=== PATIENT | female | born 1935 | race Caucasian/White ===

== ENCOUNTER 2016-07-22 17:03 | Emergency (ER) | payer MEDICARE, OTHER ==
[~2016-07-22] VITALS: Ht 157.5 cm; Wt 52.0 kg
[~2016-07-22 17:03] MED LIST: ADVAI100I PO; ALPR-138 PO; ASPI1TAB7 PO; DUONI NEB; FLUT1INH INH; NAME5TAB2 PO; SIMV5TAB3 PO
[2016-07-22 17:10] VITALS: BP 128/59; PULSE 87; RESP 16; TEMP 98.5; O2SAT 95
--- NOTE | 2016-07-22 17:27 | PD ---
HPI Chief Complaint: Abnormal Results Time Seen by Provider: 17:25 Travel History International Travel<30 days: No Contact w/Intl Traveler<30days: No Traveled to known affect area: No History of Present Illness HPI 80-year-old female with history of COPD, presents to the ER sent in by her primary care physician, apparently has had 2-3 weeks history of coughing, shortness of breath, and had been sent in for a chest x-ray several days ago showing a questionable pulmonary mass. She was supposed to follow-up for further radiological study but was not able to get to the facility, was told by primary care physician to come to the hospital for further evaluation. She denies any fevers, vomiting, or any other symptoms. Modifying Factors: None Associated Signs & Symptoms: Several weeks of coughing, questionable pulmonary mass Risk Factors: COPD PFSH Past Medical History Hx Anticoagulant Therapy: Yes (asa 81mg) Anxiety: Yes Depression: Yes High Cholesterol: Yes COPD: Yes Dementia: Yes (MILD) Diminished Hearing: No Respiratory: Yes (copd) PNEUMOCCOCAL Vaccine (Year): 2009 ?: Not Past Surgical History Cholecystectomy: Yes Eye Surgery: Yes (cataracts) Hysterectomy: Yes Tonsillectomy: Yes Other Surgery: Yes (BREAST TUMOR REMOVED-BENIGN) Social History Alcohol Use: Yes (occ) Tobacco Use: Yes (1 PPD) Substance Use: No Allergies-Medications (Allergen,Severity, Reaction): Coded Allergies: No Known Allergies (Verified , 07/22/16) Reported Meds & Prescriptions Reported Meds & Active Scripts Active Active Prescriptions or Reported Medications Unobtainable Review of Systems Except as stated in HPI: all other systems reviewed are Neg Physical Exam Narrative GENERAL: Well-developed elderly white female patient in mild distress, coughing in the ER. Awake and oriented 3. SKIN: Focused skin assessment warm/dry. HEAD: Atraumatic. Normocephalic. EYES: Pupils equal and round. No scleral icterus. No injection or drainage. ENT: No nasal bleeding or discharge. Mucous membranes pink and moist. NECK: Trachea midline. No JVD. CARDIOVASCULAR: Regular rate and rhythm. No murmur appreciated. RESPIRATORY: No accessory muscle use. Decreased throughout. Breath sounds equal bilaterally. GASTROINTESTINAL: Abdomen soft, non-tender, nondistended. Hepatic and splenic margins not palpable. MUSCULOSKELETAL: No obvious deformities. No clubbing. No cyanosis. No edema. NEUROLOGICAL: Awake and alert. No obvious cranial nerve deficits. Motor grossly within normal limits. Normal speech. PSYCHIATRIC: Appropriate mood and affect; insight and judgment normal. Data Data Last Documented VS Vital Signs Date Time Temp Pulse Resp B/P Pulse Ox O2 Delivery O2 Flow Rate FiO2 07/22/16 17:45 94 Room Air 07/22/16 17:35 21 07/22/16 17:25 20 07/22/16 17:10 98.5 87 128/59 Orders Complete Blood Count With Diff (07/22/16 17:25) Basic Metabolic Panel (Bmp) (07/22/16 17:25) Iv Access Insert/Monitor (07/22/16 17:25) Ecg Monitoring (07/22/16 17:25) Oximetry (07/22/16 17:25) Oxygen Administration (07/22/16 17:25) Chest, Single Ap (07/22/16 17:25) Sodium Chloride 0.9% Flush (Ns Flush) (07/22/16 17:30) Albuterol-Ipratropium Neb (Duoneb Neb) (07/22/16 17:30) D-Dimer (07/22/16 18:08) Methylprednisolone So Succ Inj (Solumedr (07/22/16 18:45) Albuterol-Ipratropium Neb (Duoneb Neb) (07/22/16 18:45) Labs Laboratory Tests Test 07/22/16 17:45 White Blood Count 7.6 TH/MM3 Red Blood Count 4.49 MIL/MM3 Hemoglobin 13.4 GM/DL Hematocrit 39.4 % Mean Corpuscular Volume 87.7 FL Mean Corpuscular Hemoglobin 30.0 PG Mean Corpuscular Hemoglobin 34.2 % Concent Red Cell Distribution Width 12.7 % Platelet Count 216 TH/MM3 Mean Platelet Volume 6.7 FL Neutrophils (%) (Auto) 58.3 % Lymphocytes (%) (Auto) 20.7 % Monocytes (%) (Auto) 7.6 % Eosinophils (%) (Auto) 12.4 % Basophils (%) (Auto) 1.0 % Neutrophils # (Auto) 4.4 TH/MM3 Lymphocytes # (Auto) 1.6 TH/MM3 Monocytes # (Auto) 0.6 TH/MM3 Eosinophils # (Auto) 0.9 TH/MM3 Basophils # (Auto) 0.1 TH/MM3 CBC Comment DIFF FINAL Differential Comment Sodium Level 139 MEQ/L Potassium Level 4.0 MEQ/L Chloride Level 103 MEQ/L Carbon Dioxide Level 29.8 MEQ/L Anion Gap 6 MEQ/L Blood Urea Nitrogen 25 MG/DL Creatinine 0.86 MG/DL Estimat Glomerular Filtration 63 ML/MIN Rate Random Glucose 103 MG/DL Calcium Level 8.8 MG/DL MDM Medical Decision Making Medical Screen Exam Complete: Yes Emergency Medical Condition: Yes Medical Record Reviewed: Yes Interpretation(s) Laboratory Tests Test 07/22/16 17:45 Mean Platelet Volume 6.7 FL (7.0-11.0) Eosinophils (%) (Auto) 12.4 % (0.0-4.0) Eosinophils # (Auto) 0.9 TH/MM3 (0-0.4) Blood Urea Nitrogen 25 MG/DL (7-18) Estimat Glomerular Filtration 63 ML/MIN (>89) Rate Last 24 hours Impressions Chest X-Ray 07/22/16 1725 Signed Impressions: Service Date/Time: Friday, July 22, 2016 17:30 - CONCLUSION: Chronic stable interstitial changes. No acute cardiopulmonary disease. Lloyd Alcaraz Jr., MD Differential Diagnosis Coughing, shortness of breathCOPD exacerbation versus pneumonia versus pulmonary mass Narrative Course Chest x-ray did not reveal any signs of pulmonary masses. Patient was given Solu-Medrol and nebulizers with improvement in coughing and shortness of breath in the ER. Physician Communication Physician Communication Case is signed out to Dr. Peterson at 7 PM pending dimer. Disposition based on dimer. Diagnosis Primary Impression: COPD exacerbation Scripts Unable to Obtain Active Prescriptions or Reported Meds Condition: Stable Tammie Tovar MD Jul 22, 2016 17:27
[2016-07-22] MEDS ORDERED: RESP: ALBUTEROL 2.5 MG/IPRATROPIUM 0.5 MG NEB (SCH) INH ONE ×2 (17:30→18:45)
[2016-07-22] MEDS ORDERED: SODIUM CHLORIDE 0.9% FLUSH 10 ML FLUSH IVF PRN (17:30)
[2016-07-22 17:35] VITALS: O2SAT 97
--- NOTE | 2016-07-22 17:39 | RADHPO ---
EXAM DATE/TIME: 07/22/2016 17:30 [facility] COMPARISON: CHEST SINGLE AP, November 04, 2014, 14:03. INDICATIONS : Shortness of breath. MEDICAL HISTORY : Chronic obstructive pulmonary disease. SURGICAL HISTORY : None. ENCOUNTER: Initial ACUITY: 1 day PAIN SCORE: 0/10 LOCATION: Bilateral chest FINDINGS: A single view of the chest demonstrates the lungs to be symmetrically aerated without evidence of mas s, infiltrate or effusion. Chronic interstitial changes are stable. The cardiomediastinal contours a re unremarkable. Osseous structures are intact. CONCLUSION: Chronic stable interstitial changes. No acute cardiopulmonary disease. Lloyd Alcaraz Jr., MD on July 22, 2016 at 17:35 Board Certified Radiologist. This report was verified electronically.
[2016-07-22 17:45] VITALS: O2SAT 94
[2016-07-22 18:05] LABS: AUTOMATED NEUTROPHIL # 4.4 TH/MM3 (1.8-7.7); BASOPHIL # 0.1 TH/MM3 (0-0.2); EOSINOPHIL # 0.9 TH/MM3 (0-0.4); EOSINOPHIL % 12.4 % (0.0-4.0); HEMATOCRIT 39.4 % (35.0-46.0); HEMO FLAGS DIFF FINAL; LYMPH % 20.7 % (9.0-44.0); LYMPHOCYTE # 1.6 TH/MM3 (1.0-4.8); MEAN CELL VOLUME 87.7 FL (80.0-100.0); MEAN CORPUSCULAR HGB CONC 34.2 % (32.0-36.0); MONO % 7.6 % (0.0-8.0); NEUT % 58.3 % (16.0-70.0); PLATELET COUNT 216 TH/MM3 (150-450); RED BLOOD COUNT 4.49 MIL/MM3 (4.00-5.30); RED CELL DISTRIBUTION WIDTH 12.7 % (11.6-17.2); WHITE BLOOD COUNT 7.6 TH/MM3 (4.0-11.0)
[2016-07-22 18:18] LABS: BICARBONATE 29.8 MEQ/L (21.0-32.0)
[2016-07-22] MEDS ORDERED: methylPREDNISolone SOD SUCC 125 MG/2 ML VIAL IV PUSH ONE (18:45)
[2016-07-22 19:18] VITALS: BP 120/58; PULSE 74; RESP 20; O2SAT 92
--- NOTE | 2016-07-22 19:25 | PD ---
Physical Exam Date Seen by Provider: Jul 22, 2016 Time Seen by Provider: 19:24 Narrative accepted in transfer of care from Dr Tovar GENERAL: Thin elderly female in no acute distress no respiratory distress SKIN: Warm and dry. HEAD: Normocephalic. EYES: No scleral icterus. No injection or drainage. NECK: Supple, trachea midline. No JVD or lymphadenopathy. CARDIOVASCULAR: Regular rate and rhythm without murmurs, gallops, or rubs. RESPIRATORY: Breath sounds equal bilaterally. No accessory muscle use. GASTROINTESTINAL: Abdomen soft, non-tender, nondistended. MUSCULOSKELETAL: No cyanosis, or edema. BACK: Nontender without obvious deformity. No CVA tenderness. Data Data Last Documented VS Vital Signs Date Time Temp Pulse Resp B/P Pulse Ox O2 Delivery O2 Flow Rate FiO2 07/22/16 20:58 88 20 153/64 95 07/22/16 17:45 Room Air 07/22/16 17:35 21 07/22/16 17:10 98.5 Orders Complete Blood Count With Diff (07/22/16 17:25) Basic Metabolic Panel (Bmp) (07/22/16 17:25) Iv Access Insert/Monitor (07/22/16 17:25) Ecg Monitoring (07/22/16 17:25) Oximetry (07/22/16 17:25) Oxygen Administration (07/22/16 17:25) Chest, Single Ap (07/22/16 17:25) Sodium Chloride 0.9% Flush (Ns Flush) (07/22/16 17:30) Albuterol-Ipratropium Neb (Duoneb Neb) (07/22/16 17:30) D-Dimer (07/22/16 18:08) Methylprednisolone So Succ Inj (Solumedr (07/22/16 18:45) Albuterol-Ipratropium Neb (Duoneb Neb) (07/22/16 18:45) Ct Pulmonary Angiogram (07/22/16 ) Iohexol 350 Inj (Omnipaque 350 Inj) (07/22/16 21:07) Labs Laboratory Tests Test 07/22/16 07/22/16 17:45 18:45 White Blood Count 7.6 TH/MM3 Red Blood Count 4.49 MIL/MM3 Hemoglobin 13.4 GM/DL Hematocrit 39.4 % Mean Corpuscular Volume 87.7 FL Mean Corpuscular Hemoglobin 30.0 PG Mean Corpuscular Hemoglobin 34.2 % Concent Red Cell Distribution Width 12.7 % Platelet Count 216 TH/MM3 Mean Platelet Volume 6.7 FL Neutrophils (%) (Auto) 58.3 % Lymphocytes (%) (Auto) 20.7 % Monocytes (%) (Auto) 7.6 % Eosinophils (%) (Auto) 12.4 % Basophils (%) (Auto) 1.0 % Neutrophils # (Auto) 4.4 TH/MM3 Lymphocytes # (Auto) 1.6 TH/MM3 Monocytes # (Auto) 0.6 TH/MM3 Eosinophils # (Auto) 0.9 TH/MM3 Basophils # (Auto) 0.1 TH/MM3 CBC Comment DIFF FINAL Differential Comment Sodium Level 139 MEQ/L Potassium Level 4.0 MEQ/L Chloride Level 103 MEQ/L Carbon Dioxide Level 29.8 MEQ/L Anion Gap 6 MEQ/L Blood Urea Nitrogen 25 MG/DL Creatinine 0.86 MG/DL Estimat Glomerular Filtration 63 ML/MIN Rate Random Glucose 103 MG/DL Calcium Level 8.8 MG/DL D-Dimer Quantitative (PE/DVT) 0.90 MG/L FEU [facility] Medical Record Reviewed: Yes Supervised Visit with MAT: No Interpretation(s) D-dimer: 0.9 , elevated CBC & BMP Diagram 07/22/16 17:45 Last Impressions Chest X-Ray 07/22/165 Signed Impressions: Service Date/Time: Friday, July 22, 2016 17:30 - CONCLUSION: Chronic stable interstitial changes. No acute cardiopulmonary disease. Lloyd Alcaraz Jr., MD Vital Signs Date Time Temp Pulse Resp B/P Pulse Ox O2 Delivery O2 Flow Rate FiO2 07/22/16 19:18 74 20 120/58 92 07/22/16 17:45 94 Room Air 07/22/16 17:45 94 Room Air 07/22/16 17:35 97 21 07/22/16 17:25 20 95 Room Air 07/22/16 17:10 98.5 87 16 128/59 95 Last Impressions Chest X-Ray 07/22/16 1725 Signed Impressions: Service Date/Time: Friday, July 22, 2016 17:30 - CONCLUSION: Chronic stable interstitial changes. No acute cardiopulmonary disease. Lloyd Alcaraz Jr., MD CT Angiography 07/22/16 0000 Signed Impressions: Service Date/Time: Friday, July 22, 2016 20:40 - CONCLUSION: 1. No pulmonary embolus or other acute cardiopulmonary disease. 2. Emphysema. 3. Ordinary artery calcification. 4. Tortuous and atherosclerotic thoracic aorta. No aneurysm or dissection. 5. Presumed left chest wall sebaceous cyst and please correlate clinically. Kentrell Najera MD Differential Diagnosis accepted in transfer of care from Dr Tovar, please refer to her dictation Narrative Course accepted in transfer of care from Dr Tovar; pending d-dimer At 8:00 PM patient with family at bedside informed of elevated d-dimer and plan for CT pulmonary angiogram; patient is agreeable to proceeding with imaging Diagnosis Primary Impression: COPD exacerbation Referrals: Primary Care Physician call for appointment Patient Instructions: General Instructions Additional Instruction: Continue albuterol nebulized treatments at home as needed Continue current medications as presently prescribed Follow-up with your primary care provider call office in a.m. to schedule follow -up appointment Return to the emergency department for any concerns or change in condition Med/Other Pt SpecificInfo: No Change to Meds Scripts Unable to Obtain Active Prescriptions or Reported Meds Disposition: 01 DISCHARGE HOME Condition: Stable Preethi Peterson MD Jul 22, 2016 19:25
[2016-07-22 20:58] VITALS: BP 153/64; PULSE 88; RESP 20; O2SAT 95
[2016-07-22] MEDS ORDERED: IOHEXOL 350 MG/ML 10 ML VIAL (for RAD DIAG) IV ONE (21:07)
--- NOTE | 2016-07-22 21:13 | RADHPO ---
EXAM DATE/TIME: 07/22/2016 20:40 [facility] COMPARISON: No previous studies available for comparison. EXTERNAL COMPARISON : [facility] and LAT chest xray, July 19, 2016 INDICATIONS : Evaluate for embolism. IV CONTRAST: 75 cc Omnipaque 350 (iohexol) IV RADIATION DOSE: 5.99 CTDIvol (mGy) MEDICAL HISTORY : Chronic obstructive pulmonary disease. Dementia. SURGICAL HISTORY : Cholecystectomy. ENCOUNTER: Initial ACUITY: 3 days PAIN SCALE: 6/10 LOCATION: Bilateral chest TECHNIQUE: Volumetric scanning of the chest was performed using a pulmonary embolism protocol MIP images were re constructed. Using automated exposure control and adjustment of the mA and/or kV according to patien t size, radiation dose was kept as low as reasonably achievable to obtain optimal diagnostic quality images. FINDINGS: PULMONARY ARTERIES: No filling defects are seen in the pulmonary arteries through the segmental level. LUNGS: There is no consolidation or pneumothorax . No concerning pulmonary nodule is visualized. Moderate e mphysema present. PLEURAE: There is no pleural thickening or pleural effusion. MEDIASTINUM: There is good visualization of the great vessels of the middle mediastinum. Atherosclerosis and tortu osity seen in the abdominal aorta. No aneurysm. There is patchy coronary artery calcification, primar fadumo left main and proximal left anterior descending. Calcification also seen in the mid circumflex. N o evidence of mediastinal or hilar adenopathy/mass. MUSCULOSKELETAL: An 18 mm subcutaneous mass is seen inferomedially of the left breast, most likely a sebaceous cyst. P lease correlate clinically. MISCELLANEOUS: The visualized upper abdominal organs demonstrate no acute abnormality. CONCLUSION: 1. No pulmonary embolus or other acute cardiopulmonary disease. 2. Emphysema. 3. Ordinary artery calcification. 4. Tortuous and atherosclerotic thoracic aorta. No aneurysm or dissection. 5. Presumed left chest wall sebaceous cyst and please correlate clinically. Kentrell Najera MD on July 22, 2016 at 21:09 Board Certified Radiologist. This report was verified electronically.
[2016-07-22 22:03] VITALS: TEMP 97.6
== END 2016-07-22 22:10 | disposition home or self-care (01) ==
LOC: PHED 17:03
DX: J44.1 Chronic obstructive pulmonary disease with (acute) exacerbation (principal); E78.00 Pure hypercholesterolemia, unspecified; F03.90 Unspecified dementia, unspecified severity, without behavioral disturbance, psychotic disturbance, mood disturbance, and anxiety; F17.210 Nicotine dependence, cigarettes, uncomplicated; Z79.82 Long term (current) use of aspirin; R91.8 Other nonspecific abnormal finding of lung field
CPT/HCPCS: 71010; 71275; 80048; 85025; 85379; 94640; 94664; 96374; 99285; J2930; Q9967